=== PATIENT | male | born 1950 | race Caucasian/White ===

== ENCOUNTER 2017-09-21 06:31 | Emergency (ER) | payer OTHER ==
[~2017-09-21] VITALS: Ht 180.3 cm; Wt 129.3 kg
[2017-09-21] MEDS ORDERED: FORTAMET1000 MG (07:08)
[2017-09-21] MEDS ORDERED: GLYBURIDE5 MG (07:09)
[2017-09-21] MEDS ORDERED: SIMVASTATIN10 MG (07:10)
[2017-09-21] MEDS ORDERED: NADOLOL20 MG (07:10)
[2017-09-21] MEDS ORDERED: PANTOPRAZOLE SO20 MG (07:11)
[2017-09-21] MEDS ORDERED: FOLIC ACID5 MG/1 ML (07:11)
[2017-09-21] MEDS ORDERED: DIOVAN40 MG (07:12)
[2017-09-21] MEDS ORDERED: MAXFE DROPS60 ML (07:13)
[2017-09-21] MEDS ORDERED: TESSALON PERLE100 MG PO (08:27)
[2017-09-21] MEDS ORDERED: TUSSIONEX PENN115 ML PO (08:27)
[2017-09-21] MEDS ORDERED: VENTOLIN HFA18 GM IH (08:27)
[2017-09-21] MEDS ORDERED: ZITHROMAX500 MG PO (08:27)
== END 2017-09-21 08:50 | disposition home or self-care (01) ==
LOC: ER 06:31
DX: R05 Cough (principal)